=== PATIENT | male | born 1950 | race Caucasian/White ===

== ENCOUNTER 2016-12-11 15:58 | Emergency (ER) | payer MEDICARE ==
--- NOTE | ~2016-12-11 | ER ---
PATIENT'S NAME: AIDE ADKINS [facility] AGE: 66 Y [address] ROOM: [place] [address] LOCATION: [facility] ADMIT DATE: 12/11/2016 ER/Outpatient Report DISCHARGE DATE: 12/11/2016 FAMILY PHYSICIAN: PHYSICIAN, JORGE ATTENDING PHYSICIAN: Jah Mixon CHIEF COMPLAINT: Confusion, possible shortness of breath. HISTORY OF PRESENT ILLNESS: The patient has no complaints however his family note that they feel he is more confused than usual. They did not have any specific concerns other than he is saying some things out of context. The family is also concerned that he may be having some chest pain or stroke symptoms as he has had these in the past. He denies any other issues. The patient has no complaints, denies chest pain explicitly, and denies any palpitations, fevers, chills, nausea, or vomiting. He does state that he does not think quite as clear as he normally would, but otherwise has no concerns. PAST MEDICAL HISTORY: Documented on the record and reviewed by me. SOCIAL HISTORY: Documented on the record and reviewed by me. MEDICATIONS: Documented on the record and reviewed by me. ALLERGIES: DOCUMENTED ON THE RECORD AND REVIEWED BY ME. REVIEW OF SYSTEMS: All systems reviewed and negative except as noted in the HPI. PHYSICAL EXAMINATION: VITAL SIGNS: Blood pressure 177/94, pulse 67, respiratory rate 17, temp 98.4, and SpO2 is 94% on room air. Pain 0/10. GENERAL: Age-appropriate male, in no obvious pain or distress, sitting upright in the exam chair. HEENT: Normocephalic, atraumatic. Eyes are PERRL. Oropharynx is clear. NECK: Supple. Trachea is midline. NEUROLOGIC: Awake and alert. GCS is 15. No focal deficits. No asymmetry. Slightly shuffling gait, but not unsteady. CHEST: Heart is regular rate and rhythm with no murmurs. LUNGS: Clear to auscultation bilateral with no rhonchi, wheezes, or rales. PATIENT'S NAME: AIDE ADKINS [facility] AGE: 66 Y [address] ROOM: [place] [address] LOCATION: [facility] ADMIT DATE: 12/11/2016 ER/Outpatient Report DISCHARGE DATE: 12/11/2016 FAMILY PHYSICIAN: PHYSICIAN, NO ATTENDING PHYSICIAN: Jah Mixon ABDOMEN: Soft, nontender, and nondistended. No rebound or guarding. EXTREMITIES: Warm and well-perfused with no erythema or edema. SKIN: Clean, dry, and intact. LABS AND X-RAYS: Chest x-ray was obtained and unremarkable per my review. EKG first-degree heart block with no other significant abnormalities unchanged compared to prior. Labs: CBC without appreciable abnormality, INR not elevated, pro-BNP is 338, CK-MB and troponin not elevated, serum ketones are negative. Free T4 is 1.2. TSH 0.78. CMS with elevated glucose of 486, anion gap is 9, alk phos is 140; otherwise, unremarkable. Creatinine is 1.5, GFR is 47, CPK and magnesium are [address] is unremarkable per Radiology. IMPRESSION: 1. Hyperglycemia. 2. Transient mild confusion. 3. Mild azotemia. EMERGENCY DEPARTMENT COURSE: The patient was seen and evaluated as above. Based on historical data, I do not think the patient likely has WAGNER as his diabetes appears poorly- controlled. His elevated glucose is not consistent with the ketoacidosis. He sounds like he may be taking his metformin appropriately as prescribed. I have recommended that he increase his metformin to 3 pills total a day, 1 in the morning, and 2 at night. I have also made it exquisitely clear to the patient, his daughter, and another family friend that he absolutely must establish care with a primary care provider within the next week. He was not particularly interested in staying in [place]; however, I did give him cards for the local clinics. He needs to establish care. Followup is vital. MD CARISSA VIDAL/carlos /[id number] d: 12/12/16718 t: 12/15/16710, OUTPATIENT REPORT
[2016-12-11 16:33] LABS: BASOPHIL % 0.4 %; EOSINOPHIL % 0.4 %; HEMATOCRIT 40.1 % (37.0-53.0); HEMOGLOBIN 14.2 g/dL (11.0-16.0); IMMATURE GRANULOCYTE % 0.1 %; LYMPHOCYTE # 1.3 K/uL (0.8-4.0); LYMPHOCYTE % 18.4 %; MCH 30.3 pg (27.0-34.0); MCHC 35.4 gm/dL (32.0-36.5); MCV 85.7 fl (83.0-98.0); MONOCYTE # 0.6 K/uL (0.0-1.0); MONOCYTE % 8.4 %; MPV 12.8 fl (9.4-12.4); NEUTROPHIL % 72.3 %; NRBC % 0 /100WBC (0-0.00); PLATELET COUNT 168 K/uL (150-450); RBC 4.68 M/uL (3.50-5.50); RDW-CV 12.2 % (11.9-14.6); WBC 6.9 K/uL (4.0-11.0)
[2016-12-11 16:43] LABS: PROTIME 9.4 SECONDS (9.8-11.4); PTT 26 SECONDS (25-32)
[2016-12-11 16:52] LABS: ALBUMIN 3.7 gm/dL (3.5-5.0); ALK PHOS 140 IU/L (33-138); ALT 23 IU/L (12-78); ANION GAP 12.9 (10.0-19.0); AST 14 IU/L (10-40); BLOOD UREA NITROGEN 16 mg/dL (6-24); CALCIUM 8.5 mg/dL (8.5-10.5); CHLORIDE 101 mMol/L (96-110); CO2 25 mMol/L (22-32); CPK 71 IU/L (35-332); CREATININE 1.5 mg/dL (0.6-1.3); ESTIMATED GFR (MDRD EQUATION) 47; MAGNESIUM 2.4 mg/dL (1.8-2.6); POTASSIUM 3.9 mMol/L (3.7-5.1); SODIUM 135 mMol/L (135-145); TOTAL BILIRUBIN 0.4 mg/dL (0.0-1.5); TOTAL PROTEIN 7.1 g/dL (6.0-8.4)
== END 2016-12-11 18:35 | disposition disaster alternative care site (69) ==
LOC: GMED 15:58
PROVIDERS: Emergency Medicine
DX: E11.65 Type 2 diabetes mellitus with hyperglycemia (principal); R79.89 Other specified abnormal findings of blood chemistry; I11.9 Hypertensive heart disease without heart failure; I63.9 Cerebral infarction, unspecified; Z79.84 Long term (current) use of oral hypoglycemic drugs; Z79.82 Long term (current) use of aspirin; Z79.899 Other long term (current) drug therapy